=== PATIENT | female | born 1985 | race Hispanic/Latino ===

== ENCOUNTER 2017-12-03 18:57 | Emergency (ER) | payer OTHER, SELFPAY ==
[2017-12-03] MEDS ORDERED: Ketorolac Tromethamine 30 MG/ML VIAL ONE (20:49)
[2017-12-03] MEDS ORDERED: Ondansetron ODT 4 MG TAB ONE (20:52)
[2017-12-03] MEDS ORDERED: HYDROcodone/Acetaminophen 10/325 mg Tablet ONE (21:03)
--- NOTE | 2017-12-03 21:41 | RAD ---
THREE VIEWS LEFT SHOULDER: 12/03/17 COMPARISON: None. HISTORY: Left shoulder pain. FINDINGS: Three views of the left shoulder shows hardware in the left clavicle spanning a healed fracture. Ther e is no evidence of acute fracture or dislocation. The visualized left thorax is unremarkable. IMPRESSION: No evidence of acute osseous abnormality. POS: [facility]
--- NOTE | 2017-12-03 22:00 | CT ---
CT OF THE BRAIN WITHOUT CONTRAST: 12/03/17 COMPARISON: None. HISTORY: Injury with head trauma and headache. TECHNIQUE: Multiple contiguous axial images were obtained in CT of the brain without contrast. FINDINGS: The brain is normal in morphology and attenuation without focal lesions or confluent areas of infarct ion. There is no evidence of hydrocephalus, intracranial hemorrhage, or extra-axial fluid collection. The calvarium and overlying soft tissues are unremarkable. The visualized paranasal sinuses. The visu alized paranasal sinuses and mastoid air cells are well aerated. IMPRESSION: No evidence of acute intracranial abnormality. POS: [facility]
--- NOTE | 2017-12-03 22:04 | CT ---
CT OF THE FACE WITHOUT CONTRAST: 12/03/17 COMPARISON: None. HISTORY: Facial injury with facial pain. TECHNIQUE: Multiple contiguous axial images were obtained in a CT of the face without contrast. Sagittal and cor onal reformats were performed. FINDINGS: There is mild facial soft tissue swelling. No facial fracture is identified. The visualized paranasal sinuses and mastoid air cells are well aerated. The globes and retrobulbar soft tissues are unremarkable. IMPRESSION: No evidence of facial fracture. POS: [facility]
--- NOTE | 2017-12-03 23:04 | CT ---
CT OF THE CERVICAL SPINE WITHOUT CONTRAST: 12/03/17 COMPARISON: None. HISTORY: Seizure last night and fall. Patient injured arm and neck. TECHNIQUE: Multiple contiguous axial images were obtained in a CT of the cervical spine without contrast. Sagitt al and coronal reformats were performed. FINDINGS: The vertebral bodies and intervertebral discs demonstrate normal height and alignment without fractur e or subluxation. No degenerative changes are seen. No prevertebral soft tissue swelling is seen. The posterior facets are well aligned. Normal alignment of the skull base with the cervical spine is seen. IMPRESSION: No evidence of acute osseous abnormality of the cervical spine. POS: [facility]
== END 2017-12-03 21:37 | disposition home or self-care (01) ==
LOC: ERS 18:57
DX: S40.012A Contusion of left shoulder, initial encounter (principal); S00.81XA Abrasion of other part of head, initial encounter; F41.9 Anxiety disorder, unspecified; Z79.899 Other long term (current) drug therapy; W18.2XXA Fall in (into) shower or empty bathtub, initial encounter
CPT/HCPCS: 70450; 70486; 72125; J1885; Q0162